=== PATIENT | female | born 1995 | race Hispanic/Latino ===

== ENCOUNTER → 2018-01-20 | Outpatient (REF) | payer OTHER | LOC: M SFHCLERA 17:27 | DX: R50.9 Fever, unspecified (principal) ==

== ENCOUNTER → 2018-01-25 | Outpatient (REF) | payer OTHER ==
[2018-01-25 11:30] LABS: CONTROL LINE HCG INT CTR LINE PRESENT; HCG, SERUM QUALITATIVE NEGATIVE (NEGATIVE)
== END ==
LOC: M SFHCLERA 09:35
DX: N91.2 Amenorrhea, unspecified (principal)